=== PATIENT | female | born 1945 | race Caucasian/White ===

== ENCOUNTER 2021-05-05 12:25 | Emergency (ER) | payer MEDICARE, OTHER ==
--- NOTE | 2021-05-05 14:06 | EDM.PDOC ---
ED HPI GENERAL MEDICAL PROBLEM - General Chief Complaint: Respiratory Problem Stated Complaint: COVID +/ TROUBLE BREATHING Time Seen by Provider: 05/05/21 14:20 Source of Information: Reports: Patient History Limitations: Reports: No Limitations - History of Present Illness INITIAL COMMENTS - FREE TEXT/NARRATIVE: 76-year-old female presents to the ED for evaluation with known positive COVID- 19 illness. COVID-19 illness was diagnosed at [facility] on May 03. Patient believes she developed symptoms on May 01. She has minimal cough. Nasal congestion and sore throat. She feels her sense of taste and smell are intact. Denies any sputum production. She is nauseated and does have some diarrhea. Loss of appetite. Diffuse myalgia particularly lower back. She states pain is across both sides of her lower back but seems to radiate around the right lower abdomen along the iliac crest to her groin. She reports she had similar type symptoms 5 weeks ago and was diagnosed with a urinary tract infection and treated with oral antibiotics successfully. She is concerned she may have developed a recurrent urinary tract infection. She thought she was doing okay. She came to the ED at the request of her son who advised her that she could be a candidate for monoclonal antibody therapy. She is in fact a candidate due to her age. Onset: Sudden Onset Date: 05/01/21 Duration: Day(s):, Constant, Getting Worse - Related Data Allergies Allergy/AdvReac Type Severity Reaction Status Date / Time No Known Allergies Allergy Verified 05/05/21 12:53 Home Meds: Home Meds Cyclobenzaprine [Flexeril] 5 mg PO TID PRN #20 tablet 07/19/16 [Rx] Meclizine [Antivert] 25 mg PO TID PRN #20 tablet 07/19/16 [Rx] Ondansetron [Zofran ODT] 4 mg PO Q8H PRN #20 tab.dis 07/19/16 [Rx] Past Medical History HEENT History: Reports: Hard of Hearing (Mild. 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 Other GLAZIER SUPERVISOR History: lump premoved from breast Neurological History: Reports: Vertigo (Has problems with intermittent vertigo believed to be coming from the left labyrinth.) Psychiatric History: Reports: Depression - Infectious Disease History Infectious Disease History: Reports: Novel Coronavirus - Past Surgical History Other HEENT Surgeries/Procedures: cochelear ear implant Female Surgical History: Reports: D&C Social & Family History - Tobacco Use Tobacco Use Status *Q: Never Tobacco User Second Hand Smoke Exposure: No - Caffeine Use Caffeine Use: Reports: Coffee - Recreational Drug Use Recreational Drug Use: No - Living Situation & Occupation Living situation: Reports: , with Family Occupation: Retired ED ROS GENERAL - Review of Systems Review Of Systems: See Below Constitutional: Reports: Fever, Chills, Malaise, Weakness, Fatigue, Decreased Appetite HEENT: Reports: Glasses Respiratory: Reports: Cough. Denies: Shortness of Breath, Wheezing, Pleuritic Chest Pain, Sputum, Hemoptysis Cardiovascular: Denies: Chest Pain, Blood Pressure Problem, Claudication (Not to her knowledge.), Dyspnea on Exertion, Edema, Lightheadedness, Orthopnea, Palpitations Endocrine: Reports: Fatigue GI/Abdominal: Reports: Diarrhea (Loose diarrhea stools the last 2 days 3-4 times daily. Associated nausea with decreased appetite.), Nausea. Denies: Abdominal Pain, Vomiting : Reports: Flank Pain (Right low back pain similar to what she experienced 5 weeks ago when she was diagnosed with a urinary tract infection. Pain in fact is across her lower back on both sides but radiates along the right iliac crest to her right groin. She states she had a similar type pain with urinary tract infectio) Musculoskeletal: Reports: Back Pain (Diffuse lower back pain both sides.), Other (Neurolysed myalgia particularly affecting her neck lower back and thigh muscles.) Skin: Reports: No Symptoms Neurological: Reports: Headache, Weakness. Denies: Confusion, Dizziness, Syncope, Tremors, Trouble Speaking, Difficulty Walking (Generalized weakness.), Change in Speech, Gait Disturbance Psychiatric: Reports: No Symptoms Hematologic/Lymphatic: Reports: No Symptoms Immunologic: Reports: No Symptoms ED EXAM, GENERAL - Physical Exam Exam: See Below Exam Limited By: No Limitations General Appearance: Alert, WD/WN, No Apparent Distress, Other (Temperature is 36.4. Heart rate is 68 in sinus. Respiratory to 16 with O2 sats of 97 to 98% room air. BP mildly elevated 161/91. This did come down while she was in the department to 148/84.) Eye Exam: Bilateral Eye: Normal Inspection (No blepharal pallor or scleral icterus.), PERRL Throat/Mouth: Normal Lips, Other (Mild erythema of the posterior oropharynx without exudate.) Head: Atraumatic, Normocephalic Neck: Normal Inspection, Limited Range of Motion (Has full range of motion but some pain at full extension full flexion and lateral rotation and flexion bilaterally.). No: Lymphadenopathy (L), Lymphadenopathy (R) Respiratory/Chest: No Respiratory Distress, Lungs Clear, Normal Breath Sounds, No Accessory Muscle Use. No: Rales, Rhonchi, Wheezing Cardiovascular: Regular Rate, Rhythm, No Edema, No Gallop, No Murmur Peripheral Pulses: 2+: Carotid (L), Carotid (R), Posterior Tibial (L), Posterior Tibial (R), Dorsalis Pedis (L), Dorsalis Pedis (R) GI/Abdominal: Normal Bowel Sounds, Soft, Non-Tender, No Organomegaly, No Mass, Pelvis Stable, Other (No surgical scars.) Back Exam: Other (Patient does have tenderness of her lumbar vertebra bilaterally. Pain at L3-L4 to L5-S1 facets bilaterally.). No: CVA Tenderness (L), CVA Tenderness (R) Extremities: Normal Inspection, Normal Range of Motion, Non-Tender, No Pedal Edema Neurological: Alert, Oriented, CN II-XII Intact, Normal Cognition, No Motor/Sensory Deficits Psychiatric: Normal Affect, Normal Mood Skin Exam: Warm, Dry, Intact, Normal Color, No Rash Course - Vital Signs Last Recorded V/S: Last Vital Signs Temp 36.4 C 05/05/21 12:50 Pulse 69 05/05/21 17:35 Resp 18 05/05/21 17:35 BP 178/92 H 05/05/21 17:35 Pulse Ox 97 05/05/21 17:35 - Orders/Labs/Meds Orders: Active Orders 24 hr Category Date Time Status Peripheral IV Insertion Adult [OM.PC] Stat Oth 05/05/21 14:36 Ordered Labs: Laboratory Tests 05/05/21 Range/Units 16:02 Urine Color Yellow (Yellow) Urine Appearance Clear (Clear) Urine pH 6.5 (5.0-8.0) Ur Specific [place] 1.020 (1.005-1.030) Urine Protein Negative (Negative) Urine Glucose (UA) Negative (Negative) Urine Ketones Negative (Negative) Urine Occult Blood Negative (Negative) Urine Nitrite Negative (Negative) Urine Bilirubin Negative (Negative) Urine Urobilinogen 0.2 (0.2-1.0) Ur Leukocyte Esterase Negative (Negative) Urine RBC 0-5 (0-5) /hpf Urine WBC 0-5 (0-5) /hpf Ur Squamous Epith Cells 0-5 (0-5) /hpf Urine Bacteria Few (FEW) /hpf Urine Mucus Not seen (FEW) /hpf Meds: Medications Discontinued Medications Generic Name Dose Route Start Last Admin Trade Name Freq PRN Reason Stop Dose Admin Diphenhydramine HCl 50 mg 05/05/21 14:36 Diphenhydramine 50 Mg/Ml Sdv IVPUSH ONETIME PRN hypersensitivity reaction Epinephrine HCl 0.3 mg 05/05/21 14:36 Epinephrine 1 Mg/Ml Sdv IM ONETIME PRN hypersensitivity reaction Famotidine 20 mg 05/05/21 14:36 Famotidine 20 Mg/2 Ml Sdv IVPUSH ONETIME PRN hypersensitivity reaction CASIRIVIMAB/IMDEVIMAB 10 ml/ 110 mls @ 220 mls/hr 05/05/21 14:36 05/05/21 15:58 Sodium Chloride IV 05/05/21 15:05 220 mls/hr ONETIME ONE Administration Ketorolac Tromethamine 30 mg 05/05/21 17:00 05/05/21 17:19 Ketorolac 30 Mg/Ml Sdv IVPUSH 30 mg ONETIME CARLOS Administration Methylprednisolone Sodium Succinate 125 mg 05/05/21 14:36 Methylprednisolone Sodium Succinate 125 Mg/2 Ml Sdv IVPUSH ONETIME PRN hypersensitivity reaction Sodium Chloride 10 ml 05/05/21 14:36 Sodium Chloride 0.9% 10 Ml Syringe FLUSH ASDIRECTED PRN Keep Vein Open Sodium Chloride 30 ml 05/05/21 14:45 Sodium Chloride 0.9% 10 Ml Syringe FLUSH ASDIRECTED CARLOS - Radiology Interpretation Free Text/Narrative:: 76-year-old female presents to the ED for evaluation of COVID-19 illness that she was diagnosed with 2 days ago. Symptoms started on Monday, May 01 with mild myalgia and headache. Fever and chills then occurred that night. Subsequently has developed some nausea and mild diarrhea 3-4 times daily for the last 2 days. She is concerned about possible urinary tract infection with diffuse low back pain with some radiation along the right iliac crest to her groin. She had similar event 5 weeks ago and was diagnosed with a urinary tract infection treated with antibiotics. She has minimal cough and no productive cough. Decreased appetite but she is taking in adequate fluids. Plan she will have a 1 view chest x-ray carried out. Urinalysis has been ordered. She is a candidate for Regen/COV2 treatment . Plan will be to have pharmacy mixes up and infuse over an hour per protocol. - Re-Assessments/Exams Free Text/Narrative Re-Assessment/Exam: 05/05/21 15:06 Chest x-ray reveals mildly hyperinflated lung rolle. Mild prominence of the right pulmonary artery and vascular to the lower lobe of the right lung. Lungs are otherwise clear with no acute parenchymal changes. No discrete osseous abnormalities noted. Heart size and mediastinum are normal. 05/05/21 15:56 Pharmacy just mixed up her Regeneron. Therefore infusion is to be started at this time. I will reassess her in an hour or so. Of note the urinalysis is normal. 05/05/21 16:40 patient has completed her Regeneron infusion. No problems thus far. I will give her Toradol 30 mg IV for primarily low back pain relief. 05/05/21 17:20 patient was discharged from the ED. She has no ill effects from the combination of monoclonal antibodies infused. She return to medical care if she develops increased shortness of breath. She feels she is taking fluids adequately. She has not tried Motrin for pain relief. Advised clear fluids and diet as tolerated although to avoid dairy products and appetizing grape juice until stools are formed up. Departure - Departure Time of Disposition: 17:20 Disposition: Home, Self-Care 01 Condition: Fair Clinical Impression: COVID-19 determined by clinical diagnostic criteria - Discharge Information *PRESCRIPTION DRUG MONITORING PROGRAM REVIEWED*: Not Applicable *COPY OF PRESCRIPTION DRUG MONITORING REPORT IN PATIENT RAJINDER: Not Applicable Instructions: COVID-19 Frequently Asked Questions, COVID-19 Vaccine Infor ana, What You Should Know About COVID-19 to Protect Yourself and Others - CDC, 10 Things You Can Do to Manage Your COVID-19 Symptoms at Home - CDC, COVID- 19: Quarantine vs. Isolation - CDC, Prevent the Spread of COVID-19 if You Are Sick - CDC Referrals: PCP,None [Primary Care Provider] - Forms: ED Department Discharge Additional Instructions: Evaluation in the emergency room today in regards to known COVID-19 illness diagnosed 2 days ago. Symptoms probably started on Monday, May 01 by history. You are currently therefore on day 5 of illness. Illness often worsens on day 8-11 of illness. On today's evaluation your lungs are clear and you have minimal cough. You do have generalized muscle aches and pains particularly low back and neck with associated headache. Loss of appetite with diarrhea which usually improves after 3 days. Chest x-ray proved to be completely normal with no sign of viral infection. Oxygen levels are 97 to 98% on room air indicating you are doing very well at this time. Urinalysis proved to be negative for any signs of infection. You were a candidate for monoclonal antibody therapy which we call regen/COV2 which is a combination of 2 monoclonal antibodies that was infused over an hour. The idea behind this is to give you immediate antibodies to the COVID-19 illness and hopefully prevent worsening disease and hospitalization. You may continue Tylenol and/or Motrin for fever and muscle pain and headache illness. Diet should be as tolerated with avoidance of milk and dairy products and no apple juice or grape juice until diarrhea has improved. Sepsis Event Note (ED) - Evaluation Sepsis Screening Result: No Definite Risk - Focused Exam Vital Signs: Vital Signs Temp Pulse Resp BP Pulse Ox 05/05/21 17:35 69 18 178/92 H 97 05/05/21 12:50 36.4 C 68 16 161/91 H 97 - My Orders Last 24 Hours: My Active Orders 05/05/21 14:36 Peripheral IV Insertion Adult [OM.PC] Stat - Assessment/Plan Last 24 Hours: My Active Orders 05/05/21 14:36 Peripheral IV Insertion Adult [OM.PC] Stat
[2021-05-05] MEDS ORDERED: EPINEPHrine 1 MG/ML SDV IM PRN (14:36)
[2021-05-05] MEDS ORDERED: diphenhydrAMINE 50 MG/ML SDV IVPUSH PRN (14:36)
[2021-05-05] MEDS ORDERED: methylPREDNISolone Sodium Succinate 125 MG/2 ML SDV IVPUSH PRN (14:36)
[2021-05-05] MEDS ORDERED: Sodium Chloride 0.9% 10 ML Syringe FLUSH PRN (14:36)
[2021-05-05] MEDS ORDERED: Famotidine 20 MG/2 ML SDV IVPUSH PRN (14:36)
[2021-05-05] MEDS ORDERED: Sodium Chloride 0.9% 10 ML Syringe FLUSH SCH (14:45)
--- NOTE | 2021-05-05 15:03 | CR ---
Chest: Portable view of the chest was obtained. Comparison: Prior chest x-ray of 08/24/16. Heart size and mediastinum are normal. Lungs are clear with no acute parenchymal change. No discrete osseous abnormality is appreciated. Impression: 1. Nothing acute is seen on portable chest x-ray. Diagnostic code #1
[2021-05-05] MEDS ORDERED: Ketorolac 30 MG/ML SDV IVPUSH SCH (17:00)
[2021-05-05 17:38] VITALS: BP 178/92; PULSE 69
== END 2021-05-05 17:30 | disposition home or self-care (01) ==
LOC: JD.ED 12:25
DX: U07.1 COVID-19 (principal)
CPT/HCPCS: 71045; 81001; 99283; J1885; M0243; Q0243

== ENCOUNTER 2022-09-12 11:32 | Emergency (ER) | payer MEDICARE ==
[2022-09-12 15:31] VITALS: BP 193/100; PULSE 74
[2022-09-12] MEDS ORDERED: Ketorolac 30 MG/ML SDV IM ONE (18:08)
== END 2022-09-12 20:02 | disposition home or self-care (01) ==
LOC: JD.ED 11:32
DX: N20.0 Calculus of kidney (principal); Z86.16 Personal history of COVID-19
CPT/HCPCS: 36415; 74176; 80053; 81001; 83690; 83735; 85025; 87086; 96372; 99284; J1885